=== PATIENT | female | born 1990 | race African-American/Black ===

== ENCOUNTER 2017-12-10 05:10 | Emergency (ER) | payer BC ==
[2017-12-10 05:42] LABS: Bilirubin Negative (Negative); Blood, Urine Trace (Negative); Clarity Slightly Cloudy (Clear); Glucose, Urine (Dipstick) Negative (Negative); Leukocyte Moderate (Negative); Nitrite Positive (Negative); Protein, Urine (Dipstick) Trace mg/dL (Neg-Trace); pH, Urine 7.5 (5.0-9.0)
[2017-12-10 05:46] LABS: Bacteria/HPF 3+ HPF (None Seen); Hyaline Casts/LPF 0-3 HYALINE CAST LPF (0-3 Hyaline)
[2017-12-10] MEDS ORDERED: Ketorolac Tromethamine 60 MG/2 ML VIAL ONE (05:54)
== END 2017-12-10 06:20 | disposition home or self-care (01) ==
LOC: SCSER 05:10
DX: S20.222A Contusion of left back wall of thorax, initial encounter (principal); X58.XXXA Exposure to other specified factors, initial encounter
CPT/HCPCS: 81003; 81015; 87077; 87086; 87186; 96372; J1885